=== PATIENT | female | born 1945 | race Caucasian/White ===

== ENCOUNTER 2023-07-25 11:15 | Day surgery (SDC) | payer MEDICARE ==
[~2023-07-25] VITALS: Ht 160 cm; Wt 50.4 kg
[2023-07-25] MEDS ORDERED: Ventolin/Prove6.7 GM INH (11:31)
[2023-07-25] MEDS ORDERED: EUTHYROX88 MC1 PO (11:32)
--- NOTE | 2023-07-25 11:33 | NUR ---
07/25/23 1133 Luiza Rojas AT 1132 PLEDGET AT 1133
[2023-07-25 12:39] VITALS: BP 102/63
--- NOTE | 2023-07-25 13:03 | NUR ---
07/25/23 1303 Ángel Floers iv removed intact. site wnl.
== END 2023-07-25 12:55 | disposition home or self-care (01) ==
LOC: ORSCSDS 11:15
PROVIDERS: Ophthalmology
PROC: 08RJ3JZ Replacement of Right Lens with Synthetic Substitute, Percutaneous Approach (ICD-10-PCS; principal; 2023-07-25 12:30)
DX: H25.11 Age-related nuclear cataract, right eye (principal); J44.9 Chronic obstructive pulmonary disease, unspecified; E07.9 Disorder of thyroid, unspecified; Z79.899 Other long term (current) drug therapy
CPT/HCPCS: J2250; J3010; J3301; J7040; V2632